=== PATIENT | male | born 1995 | race Caucasian/White ===

== ENCOUNTER 2022-01-12 01:30 | Emergency (ER) | payer OTHER, SELFPAY ==
--- NOTE | ~2022-01-12 | CT_ITS ---
EXAMINATION: CT CHEST WITHOUT CONTRAST CT ABDOMEN AND PELVIS WITHOUT CONTRAST CLINICAL INFORMATION: Fall. EtOH. Trauma. COMPARISON: None. TECHNIQUE: Multidetector volumetric imaging was performed through the chest, abdomen and pelvis without contrast. Sagittal and coronal reformatted images were obtained on the technologist's workstation. Axial MIP volume rendering provided. This CT examination was performed using dose optimization techniques as appropriate, variously including the following: *Automated exposure control *Adjustment of mA and/or kV according to patient size (this includes techniques or standardized protocols for targeted exams where dose is matched to indication/reason for exam; i.e. extremities or head) *Use of iterative reconstruction technique DLP: 693 mGy-cm. FINDINGS: CHEST: Lungs: The central airways are patent. No consolidation. No pleural effusion or pneumothorax. There are no pulmonary parenchymal nodules. Mediastinum: The heart is of normal size. There is no pericardial effusion. Central vascular structures are unremarkable. No hilar or mediastinal lymphadenopathy. Coronary Artery Calcification: None visualized on this study. Chest Wall/Axilla: No lymphadenopathy. No chest wall mass. ABDOMEN/PELVIS: Liver, Gallbladder, Biliary Tree: The liver is normal in size, shape, and attenuation. No focal hepatic lesion or biliary ductal dilatation is present. The gallbladder is unremarkable with no evidence of radiopaque gallstones, gallbladder wall thickening, or pericholecystic inflammatory changes. Pancreas: Unremarkable. Spleen: Unremarkable. Adrenal Glands: Unremarkable. Kidneys and Ureters: The kidneys are normal in size, shape, and attenuation. No hydronephrosis, hydroureter or calculi seen. No perinephric stranding. Bladder: Unremarkable. Gastrointestinal Tract: The stomach and small bowel appear unremarkable. No dilated loops of bowel or evidence of obstruction. No diverticulosis. No colonic wall thickening or adjacent inflammatory changes. No free air or free fluid. The appendix is unremarkable. Abdominal Wall: No hernia is demonstrated. Lymphovascular Structures: Lymph nodes: Normal. Vascular: Unremarkable. Pelvic Viscera: The prostate and seminal vesicles are unremarkable. OSSEOUS STRUCTURES: No suspicious sclerotic or lytic bone lesions are identified. No acute fractures. Vertebral body height and alignment are maintained. Posterior elements are intact. The ribs are intact. The sternum is intact. The pelvis is intact. The hips are well aligned. CT/CT abdomen pelvis wo IV con IMPRESSION: No acute traumatic finding of the chest, abdomen, or pelvis.
--- NOTE | ~2022-01-12 | CT_ITS ---
EXAMINATION: NONCONTRAST HEAD CT NONCONTRAST MAXILLOFACIAL CT NONCONTRAST CERVICAL SPINE CT INDICATION INFORMATION: Fall, hit face. COMPARISON: None TECHNIQUE: Separate noncontrast CT examinations of the head, maxillofacial bones, and cervical spine were performed. Coronal and sagittal images were created for each examination at the technologist workstation. This CT examination was performed using dose optimization techniques as appropriate, variously including the following: *Automated exposure control *Adjustment of mA and/or kV according to patient size (this includes techniques or standardized protocols for targeted exams where dose is matched to indication/reason for exam; i.e. extremities or head) *Use of iterative reconstruction technique DLP: 2388 mGy-cm FINDINGS: Head: There is no evidence of acute intracranial hemorrhage or territorial infarction. No abnormal mass effect or midline shift is seen. Irwin to white matter differentiation is well preserved. No extra-axial fluid collections are identified. No hydrocephalus. No significant volume loss. There is no abnormal attenuation within the brain parenchyma. No acute soft tissue abnormality. No calvarial fracture. The mastoid air cells are well aerated. Maxillofacial: There is a minimally displaced nasal bone fracture with slight leftward displacement. No additional maxillofacial fracture. The pterygoid plates are intact. Lamina papyracea are intact. The zygomatic arches are intact. The orbital rims are intact. The frontal, maxillary, ethmoid, and sphenoid sinuses are well aerated. The uncinate process is normal bilaterally. The infundibula and middle meati are patent. The nasal septum deviates to the right. The mandibular heads are well-seated in the condylar fossa. The orbits demonstrate a normal appearance bilaterally. The globes are intact, and there are no suspicious findings to suggest retrobulbar hemorrhage. Cervical spine: There is anatomic alignment of the vertebral bodies and posterior elements. The atlantoaxial and atlantooccipital articulations are intact. Vertebral body heights and intervertebral disc spaces are maintained. No evidence of acute fracture. No prevertebral soft tissue swelling. Visualized portions of the lung apices are unremarkable. The thyroid gland is unremarkable. CT/CT cervical spine wo IV con IMPRESSION: 1. No acute intracranial finding. 2. Minimally displaced nasal bone fracture. 3. No acute fracture or malalignment of the cervical spine.
--- NOTE | 2022-01-12 01:36 | ED_ITS ---
HPI - Fall General Chief Complaint: Fall <MANI Bowen Last Filed: 01/12/22 02:03> Stated Complaint: etoh,fall, lac to hands, above eyebrow and nose <MANI Bowen Last Filed: 01/12/22 02:03> Time Seen by Provider: 01/12/22 01:36 <MANI Bowen Last Filed: 01/12/22 02:03> Source: patient and EMS <MANI Bowen Last Filed: 01/12/22 02:03> Mode of arrival: EMS <MANI Bowen Last Filed: 01/12/22 02:03> Limitations: no limitations <MANI Bowen Last Filed: 01/12/22 02:03> History of Present Illness HPI Narrative: 26-year-old male no significant medical history presents status post trip and fall. Patient reports he was drinking at a friend's house all day, and he states he was walking home when he fell, hitting his face into the ground. Patient presents with lacerations to face, hands. Appears to be acutely intoxicated from alcohol. Patient reports he is also smoking marijuana. He has no complaints. He tells me he does has some scrapes on his face. Patient reported to EMS that [place] on the [place]. He denies suicidal and homicidal ideation. Denies other drugs and tobacco. Not on blood thinners. Tells me when he hit his head he did not lose consciousness. Denies chest pain, shortness of breath, nausea, vomiting, abdominal pain, headache, vision changes, dizziness. <MANI Bowen Last Filed: 01/12/22 02:03> MD complaint: fall <MANI Bowen Last Filed: 01/12/22 02:03> Related Data Allergies/Adverse Reactions: Allergies Allergy/AdvReac Type Severity Reaction Status Date / Time Unable to Assess Allergy Unverified 01/12/22 01:35 <MANI Bowen Last Filed: 01/12/22 02:03> Review of Systems Review of Systems: Constitutional : No Weight loss, No Fever, No Chills, No Fatigue, No Malaise ENT/Mouth : No sore throat, No Rhinorrhea Eyes: No Eye Pain, No Swelling, No Redness Cardiovascular : No Chest Pain, No SOB, No Dyspnea on Exertion, No Orthopnea, No Edema, No Palpitations Respiratory : No Cough, No Sputum, No Wheezing Gastrointestinal : No Nausea, No Vomiting, No Diarrhea, No Constipation, No abdominal Pain, No Hematochezia, No Melena Genitourinary : No Dysuria, No Urinary Frequency, No Hematuria, Musculoskeletal : No joint pain, No Myalgias, No Joint Swelling Skin : No Skin Lesions, No rash, + abrasions Neuro : No Weakness, No Numbness, No Dizziness, No Headache Psych : No Anxiety/Panic, No Depression All other systems reviewed and are negative <MANI Bowen - Last Filed: 01/12/22 02:03> Yes all other systems are reviewed and are negative <MANI Bowen - Last Filed: 01/12/22 02:03> [facility] Past Medical History Attestation statement: The following information was validated with the patient. <MANI Rusihng - Last Filed: 01/12/22 02:03> Source: old records reviewed and nursing notes reviewed <MANI Bowen - Last Filed: 01/12/22 02:03> Social History Social History: Social History Alcohol intake: current Alcohol intake frequency: a few times a week Patient Tobacco Use Status: Current everyday Tobacco user Smoked in Last 30 Days: Yes Use of substances other than those prescribed or required for medical reasons: Yes Substance Use Type: Marijuana Advance Directives: No Advance Directives Information Provided: No <MANI Bowen - Last Filed: 01/12/22 02:03> Physical Exam Vital Signs: Vital Signs: Last Vital Signs Temp 98.0 F 01/12/22 02:00 Pulse 81 01/12/22 02:00 Resp 16 01/12/22 02:00 BP 130/80 01/12/22 02:00 Pulse Ox 96 01/12/22 02:00 O2 Del Method 01/12/22 02:00 BMI result Body Mass Index 21.9 vss <MANI Bowen - Last Filed: 01/12/22 02:03> Vital Signs: Last Vital Signs Temp 98.0 F 01/12/22 02:00 Pulse 81 01/12/22 02:00 Resp 16 01/12/22 02:00 BP 130/80 01/12/22 02:00 Pulse Ox 96 01/12/22 02:00 O2 Del Method 01/12/22 02:00 BMI result Body Mass Index 21.9 <Ernst Pickett MD - Last Filed: 01/12/22 05:38> Appearance: Alert.? Oriented X3.? No acute distress.?Smells like alcohol Head: Normocephalic, atraumatic, no step-offs or deformities + abrasion to face overlying the right eyebrow, right above the bridge of the nose, center of forehead. Eyes: Pupils equal, round and reactive to light.? Extraocular movements intact and pain-free. ENT: Pharynx normal.? Neck: Normal inspection.? Neck supple.? CVS: Normal heart rate and rhythm.? Pulses normal.? Respiratory: No respiratory distress.? Breath sounds normal.? Abdomen: Soft and nontender.? Skin: Skin warm and dry.? Normal skin color.? Normal skin turgor.? Extremities: 5/5 strength to bilateral upper and lower extremities + abrasions noted to bilateral hands. Neuro: Oriented X 3.? No motor deficit.? No sensory deficit. CN 2-12 intact . Patient ambulating with steady gait from stretcher to bed. <MANI Bowen - Last Filed: 01/12/22 02:03> Course Reevaluation(s) Reevaluation #1: Sign-out given to , pending labs, imaging in medical clearance. <MANI Bowen - Last Filed: 01/12/22 02:03> Time: 02:02 <MANI Bowen - Last Filed: 01/12/22 02:03> MDM - Fall MDM Narrative Medical decision making narrative: 0141 26-year-old male presents status post trip and fall, patient was drinking all day, was walking home from a friend's house, denies LOC, not on blood thinners. Denies any medical complaints at this time. Appears intoxicated upon history taking. Smells like alcohol. Physical examination with abrasions to face, bilateral upper extremities. Neuro exam nonfocal. Cerebellar intact. GCS 15. Patient smells like alcohol Plan at this time is to rule out intracranial hemorrhage, facial bone fracture, cervical fractures, or other acute traumatic injuries. Plan at this time is to clear out the abrasions, put bacitracin on them. Obtain imaging and basic labs. <MANI Bowen - Last Filed: 01/12/22 02:03> 0141 26-year-old male presents status post trip and fall, patient was drinking all day, was walking home from a friend's house, denies LOC, not on blood thinners. Denies any medical complaints at this time. Appears intoxicated upon history taking. Smells like alcohol. Physical examination with abrasions to face, bilateral upper extremities. Neuro exam nonfocal. Cerebellar intact. GCS 15. Patient smells like alcohol Plan at this time is to rule out intracranial hemorrhage, facial bone fracture, cervical fractures, or other acute traumatic injuries. Plan at this time is to clear out the abrasions, put bacitracin on them. Obtain imaging and basic labs. [address] scans negative except for nondisplaced nasal fracture discharge patient home <Ernst Pickett MD - Last Filed: 01/12/22 05:38> Medical Records Attestation: I reviewed the patient's medical records. <MANI Bowen - Last Filed: 01/12/22 02:03> Lab Data Attestation: I reviewed the patient's lab results. <MANI Bowen - Last Filed: 01/12/22 02:03> Result diagrams: : 01/12/22 03:00 01/12/22 02:59 <MANI Bowen - Last Filed: 01/12/22 02:03> Labs: Lab Results 01/12/22 01/12/22 01/12/22 Range/Units 02:00 02:59 03:00 WBC 5.5 (4.8-10.8) X10*3/uL RBC 4.91 (4.60-5.80) X10*6/uL Hgb 15.1 (14.0-18.0) g/dl Hct 44.2 (42.0-52.0) % MCV 90.0 (80.0-98.0) fL MCH 30.8 (27.0-33.0) pg MCHC 34.2 (31.0-36.0) g/dl RDW 12.3 (11.0-16.0) % Plt Count 187 (160-400) X10*3/uL MPV 10.0 (9.4-12.4) fL Immature Gran % (Auto) 0.4 (0.0-0.4) % Neut % (Auto) 56.5 (45-73) % Lymph % (Auto) 35.0 (20-40) % Hardeman % (Auto) 6.4 (2-11) % Eos % (Auto) 1.3 (0-4) % Baso % (Auto) 0.4 (0-2) % Lymph # (Auto) 1.9 (1.2-4.9) X10*3/uL Hardeman # (Auto) 0.4 (0.1-1.2) X10*3/uL Eos # (Auto) 0.1 (0.0-0.4) X10*3/uL Baso # (Auto) 0.0 (0.0-0.2) X10*3/uL Abs Immat Gran (auto) 0.02 (0.00-0.03) X10*3/uL Absolute Neuts (auto) 3.1 (2.0-8.3) x10*3/uL Absolute Nucleated RBC 0.000 (0.0-0.012) X10*3/uL Nucleated RBC % (auto) 0.0 (0.0-0.2) /100WBC Sodium 143 (135-145) mmol/L Potassium 3.9 (3.3-5.1) mmol/L Chloride 104 (96-108) mmol/L Carbon Dioxide 27 (22-29) mmol/L Anion Gap 16 (12-20) BUN 15 (9-16) mg/dL Creatinine 1.08 (0.5-1.4) mg/dL Estim Creat Clear Calc 115.3 Estimated GFR > 60 Random Glucose 103 (60-115) mg/dL Calcium 9.4 (8.4-10.2) mg/dL Total Bilirubin 0.4 (0.0-1.0) mg/dL AST 16 (5-37) U/L ALT 16 (0-40) U/L Alkaline Phosphatase 60 (39-117) U/L Total Protein 7.0 (6.5-8.0) g/dL Albumin 4.6 (3.5-5.0) g/dL Urine Opiates Screen Not Detected (Not Detect) Urine Fentanyl Screen Not Detected (Not Detect) Ur Barbiturates Screen Not Detected (Not Detect) Ur Phencyclidine Scrn Not Detected (Not Detect) Ur Amphetamines Screen Not Detected (Not Detect) U Benzodiazepines Scrn Not Detected (Not Detect) Urine Cocaine Screen Not Detected (Not Detect) U Marijuana (THC) Screen POSITIVE H (Not Detect) Ethyl Alcohol 184 mg/dL <MANI Bowen - Last Filed: 01/12/22 02:03> Lab Results 01/12/22 01/12/22 01/12/22 Range/Units 02:00 02:59 03:00 WBC 5.5 (4.8-10.8) X10*3/uL RBC 4.91 (4.60-5.80) X10*6/uL Hgb 15.1 (14.0-18.0) g/dl Hct 44.2 (42.0-52.0) % MCV 90.0 (80.0-98.0) fL MCH 30.8 (27.0-33.0) pg MCHC 34.2 (31.0-36.0) g/dl RDW 12.3 (11.0-16.0) % Plt Count 187 (160-400) X10*3/uL MPV 10.0 (9.4-12.4) fL Immature Gran % (Auto) 0.4 (0.0-0.4) % Neut % (Auto) 56.5 (45-73) % Lymph % (Auto) 35.0 (20-40) % Hardeman % (Auto) 6.4 (2-11) % Eos % (Auto) 1.3 (0-4) % Baso % (Auto) 0.4 (0-2) % Lymph # (Auto) 1.9 (1.2-4.9) X10*3/uL Hardeman # (Auto) 0.4 (0.1-1.2) X10*3/uL Eos # (Auto) 0.1 (0.0-0.4) X10*3/uL Baso # (Auto) 0.0 (0.0-0.2) X10*3/uL Abs Immat Gran (auto) 0.02 (0.00-0.03) X10*3/uL Absolute Neuts (auto) 3.1 (2.0-8.3) x10*3/uL Absolute Nucleated RBC 0.000 (0.0-0.012) X10*3/uL Nucleated RBC % (auto) 0.0 (0.0-0.2) /100WBC Sodium 143 (135-145) mmol/L Potassium 3.9 (3.3-5.1) mmol/L Chloride 104 (96-108) mmol/L Carbon Dioxide 27 (22-29) mmol/L Anion Gap 16 (12-20) BUN 15 (9-16) mg/dL Creatinine 1.08 (0.5-1.4) mg/dL Estim Creat Clear Calc 115.3 Estimated GFR > 60 Random Glucose 103 (60-115) mg/dL Calcium 9.4 (8.4-10.2) mg/dL Total Bilirubin 0.4 (0.0-1.0) mg/dL AST 16 (5-37) U/L ALT 16 (0-40) U/L Alkaline Phosphatase 60 (39-117) U/L Total Protein 7.0 (6.5-8.0) g/dL Albumin 4.6 (3.5-5.0) g/dL Urine Opiates Screen Not Detected (Not Detect) Urine Fentanyl Screen Not Detected (Not Detect) Ur Barbiturates Screen Not Detected (Not Detect) Ur Phencyclidine Scrn Not Detected (Not Detect) Ur Amphetamines Screen Not Detected (Not Detect) U Benzodiazepines Scrn Not Detected (Not Detect) Urine Cocaine Screen Not Detected (Not Detect) U Marijuana (THC) Screen POSITIVE H (Not Detect) Ethyl Alcohol 184 mg/dL <Ernst Pickett MD - Last Filed: 01/12/22 05:38> Critical Care Time Critical Care Time Critical Care Time: No <MANI Bowen - Last Filed: 01/12/22 02:03> Discharge Plan Discharge Clinical Impression: Abrasion, Fall, Alcohol intoxication, Concussion, Nasal bone fx-closed <MANI Bowen - Last Filed: 01/12/22 02:03> Patient Disposition: Home, Self-Care <MANI Bowen - Last Filed: 01/12/22 02:03> Instructions: Nasal Fracture (ED), Concussion (ED), Alcohol Intoxication (ED), Post Concussion Syndrome (ED) <MANI Bowen - Last Filed: 01/12/22 02:03> Additional Instructions: Take your medications as prescribed. If you were prescribed antibiotics today, it is important that you take your medication to their entirety, do not skip any doses, do not finish them early. Follow-up with your primary care provider this week. Return to the emergency department with new or worsening symptoms. Such as fevers, chills, chest pain, shortness of breath, nausea, vomiting, dizziness, headache, vision changes, lethargy In case of emergency call 911 If you experience altered mental status, confusion, seizure-like activity, headache, vision changes, dizziness usual signs of post concussive syndrome ple ase return to the emergency department for further evaluation and treatment. Please refrain from physical activity or sports for 2-3 weeks until cleared by medical professional. You likely have a concussion. Please rest her brain. Limit screen time. <MANI Bowen - Last Filed: 01/12/22 02:03> Referrals: ED Physician,Generic [Physician] - 2 days <MANI Bowen - Last Filed: 01/12/22 02:03> Stand Alone Forms: Work/School Release <MANI Bowen - Last Filed: 01/12/22 02:03>
[2022-01-12 01:44] VITALS: BP 143/88; BP 170/90; PULSE 94; PULSE 97; RESP 18; TEMP 36.9; O2SAT 95; O2SAT 97; BMI 21.9
[2022-01-12 02:00] VITALS: BP 130/80; PULSE 81; RESP 16; TEMP 36.7; O2SAT 96
[2022-01-12 02:23] LABS: Amphetamine Screen Urine Not Detected (Not Detect); Barbiturates, Urine Not Detected (Not Detect); Benzodiazepines Screen Urine Not Detected (Not Detect); Cannabinoid Screen Urine POSITIVE (Not Detect); Cocaine Screen Urine Not Detected (Not Detect); Fentanyl, urine Not Detected (Not Detect); Opiate Screen Urine Not Detected (Not Detect); Phencyclidine Screen Urine Not Detected (Not Detect)
[2022-01-12 03:05] LABS: Basophils Percent Auto 0.4 % (0-2); Eosinophils Absolute Auto 0.1 X10*3/uL (0.0-0.4); Eosinophils Percent Auto 1.3 % (0-4); Hematocrit 44.2 % (42.0-52.0); Hemoglobin 15.1 g/dl (14.0-18.0); Imm Gran Abs Auto 0.02 X10*3/uL (0.00-0.03); Imm Gran Pct Auto 0.4 % (0.0-0.4); Lymphocytes Absolute Auto 1.9 X10*3/uL (1.2-4.9); MANUAL DIFF FLAG NO; Mean Corpuscular HGB Conc 34.2 g/dl (31.0-36.0); Mean Corpuscular Hemoglobin 30.8 pg (27.0-33.0); Monocytes Absolute Auto 0.4 X10*3/uL (0.1-1.2); Monocytes Percent Auto 6.4 % (2-11); Neutrophils Absolute Auto 3.1 x10*3/uL (2.0-8.3); Neutrophils Percent Auto 56.5 % (45-73); Platelet Count 187 X10*3/uL (160-400); Red Blood Count 4.91 X10*6/uL (4.60-5.80); Red Cell Distribution Width 12.3 % (11.0-16.0); White Blood Count 5.5 X10*3/uL (4.8-10.8)
--- NOTE | 2022-01-12 03:11 | PC.NURSE ---
Cleaned pts wounds over eyebrow, nose, top lip, and knuckles on both hands.
[2022-01-12 03:23] LABS: Alanine Aminotransferase 16 U/L (0-40); Albumin Level 4.6 g/dL (3.5-5.0); Alkaline Phosphatase 60 U/L (39-117); Anion Gap 16 (12-20); Aspartate Amino Transferase 16 U/L (5-37); Bilirubin Total 0.4 mg/dL (0.0-1.0); Blood Urea Nitrogen 15 mg/dL (9-16); Calcium 9.4 mg/dL (8.4-10.2); Carbon Dioxide 27 mmol/L (22-29); Chloride 104 mmol/L (96-108); Creatinine Clr Calc Pharmacy 115.3; Estimated Glomerular Filt Rate > 60; Ethanol 184 mg/dL; Glucose Random 103 mg/dL (60-115); Potassium 3.9 mmol/L (3.3-5.1); Sodium 143 mmol/L (135-145)
== END 2022-01-12 06:19 | disposition home or self-care (01) ==
PROVIDERS: Physician Assistant; Emergency Provider Internal Medicine
DX: S60.511A Abrasion of right hand, initial encounter (principal); S60.512A Abrasion of left hand, initial encounter; S02.2XXA Fracture of nasal bones, initial encounter for closed fracture; S06.0X0A Concussion without loss of consciousness, initial encounter; F10.129 Alcohol abuse with intoxication, unspecified; Y90.6 Blood alcohol level of 120-199 mg/100 ml; F17.210 Nicotine dependence, cigarettes, uncomplicated; R51.9 Headache, unspecified; M54.6 Pain in thoracic spine; W01.10XA Fall on same level from slipping, tripping and stumbling with subsequent striking against unspecified object, initial encounter; Y93.9 Activity, unspecified; Y92.480 Sidewalk as the place of occurrence of the external cause; Y99.9 Unspecified external cause status; Z71.6 Tobacco abuse counseling; Z79.899 Other long term (current) drug therapy
CPT/HCPCS: 36415; 70450; 70486; 71250; 72125; 74176; 80053; 80307; 82077; 85025; 99284

== ENCOUNTER → 2023-01-17 07:38 | Outpatient (BNVA) | payer OTHER, SELFPAY | PROVIDERS: Visit Provider Internal Medicine | DX: S30.0XXA Contusion of lower back and pelvis, initial encounter (principal); W00.2XXA Other fall from one level to another due to ice and snow, initial encounter | CPT/HCPCS: 99203 ==

== ENCOUNTER → 2023-01-20 08:41 | Outpatient (BNVA) | payer OTHER, SELFPAY | PROVIDERS: Visit Provider Internal Medicine | DX: S20.22 Contusion of back wall of thorax (principal); W00.2XXD Other fall from one level to another due to ice and snow, subsequent encounter | CPT/HCPCS: 99213 ==

== ENCOUNTER → 2023-01-25 10:20 | Outpatient (BNVA) | payer OTHER, SELFPAY | PROVIDERS: Visit Provider Internal Medicine | DX: S30.0XXD Contusion of lower back and pelvis, subsequent encounter (principal); W00.2XXD Other fall from one level to another due to ice and snow, subsequent encounter | CPT/HCPCS: 99213 ==

== ENCOUNTER → 2023-02-01 08:06 | Outpatient (BNVA) | payer OTHER, SELFPAY | PROVIDERS: Visit Provider Internal Medicine | DX: S30.0XXD Contusion of lower back and pelvis, subsequent encounter (principal); W00.2XXD Other fall from one level to another due to ice and snow, subsequent encounter | CPT/HCPCS: 99213 ==